=== PATIENT | male | born 1980 | race Caucasian/White ===

== ENCOUNTER → 2020-08-08 18:54 | Outpatient (CLI) | payer OTHER, SELFPAY ==
--- NOTE | 2020-08-08 18:58 | DI.MRI.S_ITS ---
PROCEDURE: MRFOOT LT WO CON INDICATIONS: PAIN IN LEFT FOOT TECHNIQUE: Noncontrast sagittal T1 spin echo and T2 fast spin echo with fat saturation, long-axis T1 spin echo and T2 fast spin echo with fat saturation, short-axis T1 spin echo and T2 fast spin echo with fat saturation through the forefoot. COMPARISON: None. FINDINGS: Image quality: Excellent. Bones and joints: There is moderate hallux valgus. Extensive edema throughout 2nd metatarsal shaft is seen with cortical disruption and linear hypointense signal involving 2nd proximal metatarsal shaft/base suggestive of a metatarsal shaft stress fracture. No stress fracture is seen. Osteoarthritic changes are noted at 1st MTP joint and 1st interphalangeal joint. Nonspecific subcortical cystic changes are noted involving medial 1st metatarsal head. No suspicious intraosseous lesion. Soft tissues: The visualized plantar foot muscles demonstrate normal signal and bulk. Visualized flexor and extensor tendons appear intact, without tenosynovitis. The distal insertions of the peroneus brevis and longus tendons appear intact. The principal Lisfranc ligament appears intact. No soft tissue ganglion cysts or bursal fluid collections. Sagittal images demonstrate no evidence for plantar plate tears. IMPRESSION: 1. Nondisplaced stress fracture involving proximal shaft/base of 2nd metatarsal bone with extensive marrow edema. No other fracture or dislocation is seen. 2. 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 Nonspecific subcortical cystic changes involving medial 1st metatarsal head. 3. Extensor and flexor tendons are grossly intact. Lisfranc ligament and joint is intact. Dictated by: Laurent Avila M.D. on 08/09/2020 at 9:47 Approved by: Laurent Avila M.D. on 08/09/2020 at 10:04
== END ==
PROVIDERS: Referring Provider Student in an Organized Health Care Education/Training Program; Visit Provider Student in an Organized Health Care Education/Training Program
DX: M79.672 Pain in left foot (principal); M84.375A Stress fracture, left foot, initial encounter for fracture; M20.12 Hallux valgus (acquired), left foot; M19.072 Primary osteoarthritis, left ankle and foot; X58.XXXA Exposure to other specified factors, initial encounter
CPT/HCPCS: 73718

== ENCOUNTER → 2020-12-19 08:52 | Outpatient (CLI) | payer OTHER, SELFPAY ==
[2020-12-19 10:18] LABS: Vitamin D 25 Hydroxy (D3) 61.9 ng/mL (30.0-100.0)
== END ==
PROVIDERS: Referring Provider Orthopaedic Surgery Foot and Ankle Surgery; Visit Provider Orthopaedic Surgery Foot and Ankle Surgery
DX: E55.9 Vitamin D deficiency, unspecified (principal)
CPT/HCPCS: 36415; 82306

== ENCOUNTER → 2021-01-01 19:03 | Outpatient (CLI) | payer OTHER, SELFPAY ==
--- NOTE | 2021-01-01 | DI.MRI.S_ITS ---
PROCEDURE: MRFOOT LT WO CON INDICATIONS: pain in left foot TECHNIQUE: Noncontrast sagittal T1 spin echo and T2 fast spin echo with fat saturation, long-axis T1 spin echo and T2 fast spin echo with fat saturation, short-axis T1 spin echo and T2 fast spin echo with fat saturation through the forefoot. COMPARISON: [facility], CR, XR FOOT 3 VIEWS WEIGHT BEARING LEFT, 12/18/2020, 8:36. [facility], MR, MR FOOT LT WO CON, 08/08/2020, 19:02. FINDINGS: Image quality: Excellent. Bones and joints: Nondisplaced fractures redemonstrated at the base of the 2nd metatarsal with persistent visualization of the fracture line and surrounding osseous edema. No new fracture is identified. Moderate hallux valgus is again seen with moderate degenerative changes of the 1st metatarsophalangeal joint. Cystic changes are seen at the medial 1st metatarsal head. Degenerative changes also noted at the metatarsal sesamoid articulations and scattered throughout the interphalangeal joints of the toes. Soft tissues: The visualized plantar foot muscles demonstrate normal signal and bulk. Visualized flexor and extensor tendons appear intact, without tenosynovitis. The distal insertions of the peroneus brevis and longus tendons appear intact. The principal Lisfranc ligament appears intact. No soft tissue ganglion cysts. Small nonspecific intermetatarsal bursal fluid collections are present. Sagittal images demonstrate no evidence for plantar plate tears. IMPRESSION: 1. Nondisplaced fracture redemonstrated at the base of the 2nd metatarsal with persistent visualization of the fracture line and surrounding osseous edema. 2. Moderate hallux valgus with moderate degenerative changes at the 1st metatarsophalangeal joint and cystic changes at the medial 1st metatarsal head. Dictated by: Julius Trinidad M.D. on 01/02/2021 at 9:15 Approved by: Julius Trinidad M.D. on 01/02/2021 at 9:22
== END ==
PROVIDERS: Referring Provider Orthopaedic Surgery Foot and Ankle Surgery; Visit Provider Orthopaedic Surgery Foot and Ankle Surgery
DX: M79.672 Pain in left foot (principal); S92.325A Nondisplaced fracture of second metatarsal bone, left foot, initial encounter for closed fracture; M20.12 Hallux valgus (acquired), left foot
CPT/HCPCS: 73718

== ENCOUNTER → 2021-09-24 12:50 | Outpatient (CLI) | payer OTHER, SELFPAY ==
[2021-09-24 13:54] LABS: COVID19 -Nasal RAPID Negative (Negative)
== END ==
PROVIDERS: Visit Provider Surgery
DX: Z20.822 Contact with and (suspected) exposure to COVID-19 (principal); Z01.812 Encounter for preprocedural laboratory examination
CPT/HCPCS: 87635; C9803

== ENCOUNTER 2021-09-26 06:29 | Day surgery (SDC) | payer OTHER, SELFPAY ==
[2021-09-23 10:13] VITALS: BMI 26.6
[2021-09-26] VITALS (11 sets, daily range): BP systolic 116–145; BP diastolic 60–83; PULSE 70–881; RESP 10–16; TEMP 36.6–36.8; O2SAT 97–99; BMI 26.6
--- NOTE | 2021-09-26 | DI.RAD.S_ITS ---
PROCEDURE: XR FOOT LT MIN 3V INDICATIONS: LEFT ORIF 2ND METATARSAL TECHNIQUE: 3 views of the foot were acquired. COMPARISON: None. FINDINGS: Bones: Intraoperative images demonstrate postsurgical changes compatible with ORIF of left 2nd metatarsal fracture. Orthopedic plate and screws have been placed for internal fixation. Orthopedic hardware is in expected position. There is anatomic alignment of the fracture fragments. Soft tissues: No tibiotalar joint effusion. Achilles tendon appears normal. IMPRESSION: Expected postsurgical change for ORIF of left 2nd metatarsal fracture. Dictated by: Noris Rendon MD, PhD on 09/26/2021 at 10:14 Approved by: Noris Rendon MD, PhD on 09/26/2021 at 10:15
[2021-09-26] MEDS: LACTATED RINGERS 1,000 ML 42 ML IV (06:46)
--- NOTE | 2021-09-26 07:31 | PM.PREOP ---
Pre-operative Note COVID-19 COVID-19 status: Negative Result date/Date tested (Pos, Neg/Pending): 09/26/21 Interval Note History & Physical reviewed/Exam performed by Physician: Yes Changes to H&P: No
--- NOTE | 2021-09-26 07:54 | P.OP_ITS ---
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 Open reduction internal fixation left 2nd metatarsal nonunion CPT code 46569 2. Open bone graft, small left calcaneus CPT code 15561-37 Same procedure as scheduled: Yes Indications: Patient is a 41-year-old male number of the [place] with greater than 1 year of left foot pain. He was diagnosed with a 2nd metatarsal fracture and then a 2nd metatarsal fracture nonunion. He has had CT scans demonstrating persistence of the nonunion despite treatment with vitamin-D and bone stimulation. He also has MRIs that demonstrate persistent nonunion and osseous edema at the 2nd metatarsal nonunion site and intact Lisfranc ligament. He is able to walk but cannot run. His vitamin-D level is normal. He has been indicated for open red uction internal fixation with bone grafting the nonunion. We discussed using autogenous bone graft. The risks and benefits of the procedure have been discussed with the patient even opportunity to ask questions. The risks of surgery include but are not limited to infection, malunion, nonunion, persistence of pain, damage to nerves and blood vessels, symptomatic hardware, posttraumatic arthritis, DVT, PE, cardiopulmonary complications and . The patient expressed a thorough understanding of the risks and benefits of surgery and has elected to proceed. Consent was signed. . 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 He was brought back to the operating room by the anesthesia team. A preoperative regional block was placed for postoperative pain control by the anesthesiologist. Once in the operating room the patient was positioned supine on operative table. General anesthetic was administered. All bony prominences well padded. Well- padded thigh tourniquet was placed on the operative extremity and an ipsilateral thigh bump. An SCD was on the contralateral lower extremity. The left lower extremity was then prepped and draped in the standard sterile fashion formal time-out procedure was performed confirming the patient's side and site of surgery administration of appropriate preoperative antibiotics. All were in agreement. Attention turned to the left foot. The C-arm was brought in and the 2nd metatarsal and was identified and a dorsal longitudinal incision was marked out towards the lateral edge of the 2nd metatarsal. The Esmarch was used for exsanguination and the tourniquet was elevated to 250 mmHg and stayed there for 70 minutes. A triangle was used to aid with positioning. The dorsal longitudinal incision was then made down through skin and subcu tissue the tissue. Careful dissection was taken down to the level of the 2nd metatarsal. The neurovascular bundle was protected and retracted medially. Second metatarsal and 2nd TMT joints were identified. The nonunion of the 2nd metatarsal base was identified using a needle openly and on x-ray. And the level of the 2nd TMT joint was protected. At this point the 1st a 6 hole T-plate from the Mendez and Nephew set was placed over the metatarsal and positioned and wired in place provisional drill hole was made proximally for ease of reestablishing position later. The plate was then removed and then the nonunion site was mobilized using the curette, 1.8 drill and osteotome. Additionally a small dorsal rectangular cortical cancellous in length graft was drawn out encompassing the nonunion and extending longer distal this made using a small saw and was removed using the osteotome and set aside for later use in grafting. Additionally the curette were used to clean off the nonunion site. The nonunion site was spread apart and the bony surfaces debrided thoroughly with a curette then rinsed and then drilled with the 1 a drill both proximally and distally to good bleeding bone. Care was taken to make sure this was all the way plantarly. Next attention turned to the calcaneal bone graft harvest Calcaneal bone graft harvest: Separate site at the lateral heel was identified at the calcaneus tuberosity a small incision was made with a 15 blade this was dissected down to the lateral wall the calcaneus. The 8 gauge jam she needle was then advanced through the lateral cortex of the calcaneus and into the cancellous bone the central stylet was removed and the trocar was advanced making multiple different passes to obtain cancellous graft plugs. Once adequate bone graft was obtained from this separate site attention was returned to the dorsal 2nd metatarsal incision. The autograft was placed into the nonunion site along the proximal and distal bone surfaces and into the bottom of the defect of the area from the inlay graft. The corticocancellous inlay graft was then replaced into the incision and a reversed fashion with the distal as she now proximal and then the 6 hole 2.4 plate was then replaced on top of this this was again severe cured provisionally with the previous drill hole and nonlocking cortical screw proximally and then with all of wires followed by a nonlocking bicortical screw distally. Next all locking screw was placed proximally followed by nonlocking and locking screws distally. Good bite was obtained. Careful multiplanar fluoroscopy was used in AP oblique lateral planes and live fluoroscopy done to confirm that the proximal screws were outside of the tarsometatarsal joint this is best visualized on the oblique view. Once appropriate confirmation of hardware placement and fracture reduction was completed the instruments were removed. The tourniquet was released. Hemost asis was achieved. Deep closure was performed with 3-0 Vicryl. 4-0 Monocryl subcutaneous and 4-0 and 3-0 nylon in the skin. The calcaneus graft site was closed with 3-0 nylon. Additional 10 cc of local anesthetic was infiltrated. Sterile dressing was placed with Xeroform gauze Webril and a posterior splint in neutral position. The patient was woken from anesthesia and taken to the recovery unit in good condition. There no immediate complications from this procedure. All counts were correct. Toes immediately pinked up following deflation of the tourniquet. Complications: none Post-operative Condition: stable Disposition: PACU Plan for aftercare: Nonweightbearing or touchdown for balance for 6 weeks. Will return to clinic in 2 weeks to be changed from the splint to a boot. And for suture removal. Continue to take vitamin-D. Pain medication sent to his pharmacy. Elevate above the heart level. Will start aspirin for DVT prophylaxis on postoperative day 1
[2021-09-26] MEDS: CEFAZOLIN 2 GM/20 ML SYRINGE IV (08:15)
--- NOTE | 2021-09-26 08:17 | SUR.PREOP ---
safty pause at 0800 . Block start time [0805] . Monitoring initiated and maintained throughout procedure.vss Oxygen and medications given per anesthesiologist instructions. Patient remained stable throughout procedure, no adverse reactions noted. Block end time [0810].b/p 130/70 74 16 sats 100% on 2 leters per nc. pt. tolerated procedure well.NSR on the monitor .
--- NOTE | 2021-09-26 08:40 | SUR.OPER ---
Supine on padded OR bed, head on pillow, arms secured on padded arm boards at <90 degrees abduction, right leg straight, gel pad under the right leg, towel over the right leg, right leg taped over the blanket , Dr Beach placed one blanket under the left hip.
--- NOTE | 2021-09-26 09:25 | P.PCN_ITS ---
Procedures Date/Time Date of procedure: 09/26/21 Time of procedure: 07:50 General Procedure description: Ultrasound guided popliteal sciatic nerve block for post op pain control after left second metatarsal ORIF by Dr. Boo. Risk and benefits of procedure discussed with patient. ASA monitoring applied to patient. Oxygen given via nasa l cannula. 2 mg Versed and 50 mcg fentanyl given for procedural sedation. Skin site was prepped with chlorhexidine and allowed to fully dry. Sterile gloves, mask, hat and probe cover were used to maintain sterility. 2% lidocaine and 30ga needle was used to make a small skin wheal at needle insertion site. Under ultrasound guidance, a 21ga 100mm Pajunk needle was directed near the division of the sciatic nerve into tibial and peroneal nerve in the popliteal fossa (lateral approach). Patient reported no parasthesias. After negative aspiration, 20 mL 0.5% bupivacaine and 10mg dexamethasone were injected around sciatic nerve. Patient tolerated procedure well.
[2021-09-26] MEDS: BUPIVACAINE 0.25% (PF) 30 ML, EPINEPHrine 0.15 MG INJ (10:09)
[2021-09-26] MEDS: HYDROMORPHONE 2 MG INJ IV (10:30)
[2021-09-26] MEDS: OXYCODONE IR 5 MG TABLET PO (10:55)
--- NOTE | 2021-09-26 11:00 | SUR.PHASEI ---
Dr Ramirez at bedside to check on patient. see new order for tylenol.
[2021-09-26] MEDS: ACETAMINOPHEN 325 MG TABLET 975 MG PO (11:09)
== END 2021-09-26 11:37 | disposition home or self-care (01) ==
PROVIDERS: Referring Provider Orthopaedic Surgery Foot and Ankle Surgery; Visit Provider Orthopaedic Surgery Foot and Ankle Surgery
PROC: (CPT 28485; principal; 2021-09-26 07:45)
DX: S92.325K Nondisplaced fracture of second metatarsal bone, left foot, subsequent encounter for fracture with nonunion (principal); M20.12 Hallux valgus (acquired), left foot
CPT/HCPCS: 28322; 64450; 73630; 76000; J0171; J0690; J1100; J1170; J2250; J2405; J2704; J3010